=== PATIENT | female | born 1995 | race African-American/Black ===

== ENCOUNTER 2018-01-27 11:00 | Emergency (ER) | payer OTHER ==
[2018-01-27] MEDS: ONDANSETRON 4 MG ORAL DISINTEGRATING TAB (Q0162 PER 1MG) PO (11:50)
[2018-01-27] MEDS: IBUPROFEN 600 MG TAB PO (11:50)
== END 2018-01-27 12:43 | disposition home or self-care (01) ==
LOC: M ED 11:00
DX: S70.02XA Contusion of left hip, initial encounter (principal); V49.49XA Driver injured in collision with other motor vehicles in traffic accident, initial encounter; Y92.410 Unspecified street and highway as the place of occurrence of the external cause; M54.5 Low back pain; M25.562 Pain in left knee; Z88.8 Allergy status to other drugs, medicaments and biological substances; Z91.013 Allergy to seafood; Z91.040 Latex allergy status
CPT/HCPCS: Q0162

== ENCOUNTER 2019-06-17 15:33 | Emergency (ER) | payer OTHER ==
[~2019-06-17] VITALS: Ht 160 cm; Wt 59.4 kg
[~2019-06-17 15:33] MED LIST: CENTCHW4 PO; IBUP-1022 PO; NAPR-885 PO; ROBA500T PO
[2019-06-17] MEDS ORDERED: EXCETAB22 PO (15:40)
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
[2019-06-17] MEDS ORDERED: ACETAMINOPHEN 325 MG TAB PO ONE (18:00)
[2019-06-17] MEDS ORDERED: KETOROLAC 60 MG/2 ML VIAL (J1885) IM ONE (18:00)
[2019-06-17 18:40] VITALS: BP 138/73
== END 2019-06-17 18:47 | disposition home or self-care (01) ==
LOC: M ED 15:33
DX: S09.90XA Unspecified injury of head, initial encounter (principal); G43.909 Migraine, unspecified, not intractable, without status migrainosus; W01.198A Fall on same level from slipping, tripping and stumbling with subsequent striking against other object, initial encounter; Y92.89 Other specified places as the place of occurrence of the external cause; Y93.89 Activity, other specified; Y99.1 Military activity; Z91.013 Allergy to seafood; Z91.89 Other specified personal risk factors, not elsewhere classified; Z91.040 Latex allergy status
CPT/HCPCS: 70450; 84702; 96372; 99283; J1885

== ENCOUNTER → 2020-05-04 | Outpatient (CLI) | payer SELFPAY ==
[~2020-05-04] MED LIST changes: +EXCETAB22 PO
== END ==
LOC: M LABSMTC 12:08
PROVIDERS: ATTEND Pediatrics
DX: Z20.828 Contact with and (suspected) exposure to other viral communicable diseases (principal)